=== PATIENT | female | born 1995 | race Caucasian/White ===

== ENCOUNTER 2016-11-09 01:21 | Emergency (ER) | payer OTHER ==
[~2016-11-09] VITALS: Ht 154.9 cm; Wt 52.3 kg
[2016-11-09 01:21] VITALS: TEMP 36.9; Ht 154.9 cm; Wt 52.3 kg
[2016-11-09] MEDS ORDERED: HALOPERIDOL LACTATE 5 MG/ML 1 ML VIAL ONE (01:24)
[2016-11-09] MEDS ORDERED: LORAZEPAM 2 MG/ML 1 ML VIAL ONE (01:24)
[2016-11-09 01:35] VITALS: O2SAT 98
[2016-11-09 01:54] LABS: HEMATOCRIT 36.2 % (37-47); MEAN CELL VOLUME 86.6 fL (80-100); MEAN CORPUSCULAR HGB CONC 32.3 g/dl (32-36); MEAN PLATELET VOLUME 9.5 fL (7.4-10.4); PLATELET COUNT 188 K/uL (130-400); RED BLOOD COUNT 4.18 M/uL (4.2-5.4)
[2016-11-09 02:13] LABS: BLOOD UREA NITROGEN 15 mg/dl (7-18); BUN/CREATININE RATIO 27.8 (10-20); CALCIUM 8.5 mg/dl (8.5-10.1); CARBON DIOXIDE 22 mmol/L (21-32); CHLORIDE 106 mmol/L (98-107); CREATININE 0.54 mg/dl (0.60-1.20); GLUCOSE 122 mg/dl (70-99); POTASSIUM 3.3 mmol/L (3.5-5.1); SODIUM 139 mmol/L (136-145)
--- NOTE | 2016-11-09 03:20 | EMERGENCY ROOM VISIT NOTE ---
History Report prepared by Alex: Matty Dennis Under the Supervision of: Dr. Mary Ann Ruiz D.O. First contact with patient: :27 Chief Complaint: ALCOHOL OVERDOSE Stated Complaint: ALCOHOL OVERDOSE Nursing Triage Summary: Pt arrived via [facility] from [facility] in handcuffs with [place] [employer]. Per PD, they were called to scene of local parking garage in [facility] due to a women repeatedly yelling "no". Upon arrival PD found the pt supine on the ground. Upon waking pt, she became combative with PD and was quickly restrained and handcuffed. Pt reportedly obtained several injuries during struggle with PD. EMS called to scene for pt evaluation. Upon arrival to hospital pt yelling "unsue me, unsue me. I did nothing wrong except being brown." Pt handcuffed with [place] PD escort. Pt moved from EMS litter onto hospital litter. Pt threatening and yelling. Pt yelling "get off me or I will kill them". Pt smells of alcohol. Denies drug use. History of Present Illness The patient is a 21 year old female who presents to the Emergency Room via Police for alcohol intoxication and combative behavior. Per the police and nursing staff, the patient was heard screaming from a parking garage by a passerby who phoned for 911. When police arrived to the parking deck, the patient was on the floor of the garage unresponsive. She began attacking the police and became very combative when she woke up. The police took her to the ground where she suffered an injury to the right forehead. Upon arrival to the emergency department the patient is screaming and being combative with hospital personnel. Source of History: police, nursing staff Onset: Shortly [employer] Position: other (EtOH intox) Quality: other (EtOH intox) Associated Symptoms: No LOC Review of Systems See HPI for pertinent positives & negatives. Past Medical & Surgical Medical Problems: (1) No significant medical problems Surgical Problems: (1) No significant past surgical history Family History No family history recorded secondary to EtOH intox and chemical sedation Social History Smoking Status: Never Smoker Alcohol Use: occasionally Marital Status: single Housing Status: lives alone Occupation Status: [employer] student Current/Historical Medications Unable to Obtain Active Prescriptions or Reported Meds Allergies Coded Allergies: No Known Allergies (Unverified , 09/10/15) Physical Exam Vital Signs Date Time Temp Pulse Resp B/P (MAP) Pulse Ox O2 Delivery O2 Flow Rate FiO2 11/09/16 06:01 106/71 11/09/16 05:56 85 14 96 11/09/16 05:36 80 11/09/16 05:31 91/60 11/09/16 05:26 84 17 95 11/09/16 05:21 83 16 95 11/09/16 05:01 98/60 11/09/16 04:51 79 15 96 11/09/16 04:46 79 15 96 11/09/16 04:31 83/50 11/09/16 04:16 77 15 96 11/09/16 04:11 77 15 96 11/09/16 04:01 96/51 11/09/16 03:41 95 22 96 11/09/16 03:31 71/33 11/09/16 03:11 81 16 95 11/09/16 03:06 82 16 95 11/09/16 03:01 86/42 11/09/16 02:40 76/43 11/09/16 02:06 91 17 95 11/09/16 02:01 99/52 11/09/16 01:35 98 Room Air 11/09/16 01:35 101 11/09/16 01:32 109/66 11/09/16 01:21 36.9 114 22 109/66 98 Room Air Physical Exam HEENT: Head - There is hematoma present over the right eye. Pupils are equal, round, and reactive to light. Extraocular eye muscles are intact and sclera are anicteric. Ears - bilaterally patent canals with no evidence of hemotympanum. Nose - moist nasal mucosa without evidence of trauma or discharge. Mouth - moist buccal mucosa with no trauma to the teeth or signs of malocclusion. Neck: The neck is supple and there is no pain to palpation over the posterior cervical spine and no obvious step-offs or deformities. There is no JVD or tracheal deviation. Chest: There are no signs of deformities, contusions or abrasions to the chest wall. There is no obvious crepitus or paradoxical chest rise. Heart: Regular, rate, and rhythm. There is a normal S1 and S2 with no murmurs, clicks, or gallops appreciated. Lungs: Clear to auscultation bilaterally with no wheezes, rales, or rhonchi. Abdomen: Soft, completely nontender, nondistended, with good bowel sounds. There is no sign of trauma such as contusions, abrasions or penetrations. There are no palpable pulsatile masses or hepatosplenomegaly. There is no guarding, rigidity, or rebound noted. Pelvis: Stable to rock and compression. Extremities: No obvious trauma, deformities, contusions, or edema. There are easily palpable peripheral pulses. Neuro: The patient is awake and alert and easily able to follow commands. Muscle strength is 5 out of 5 in all 4 extremities. Otherwise, neuro exam is unremarkable. Back: The entire thoracic, lumbar, and sacral spine were palpated. There are no obvious step-offs or deformities noted. There are no obvious signs of trauma such as contusions abrasions penetrations noted to the back. Medical Decision & Procedures ER Provider Diagnostic Interpretation: Radiology results as stated below per my review and the radiologist's interpretation: CT HEAD: Right periorbital soft tissue swelling with no underlying fracture. The right globe is intact. No acute infarct, hemorrhage, or hydrocephalus. The remaining soft tissues and the osseous structure are unremarkable. Radiologist: Dick Sanderson M.D. CT FACIAL: Right facial swelling with no underlying fracture. Paranasal sinuses and mastoid air cells are clear. Radiologist: Dick Sanderson M.D. CT C SPINE: Nonspecific straightening of the cervical spine. Otherwise no acute fracture or subluxation. The alignment and vertebral body heights are normal. Normal prevertebral and paranasal soft tissues. Radiologist: Dick Sanderson M.D. Laboratory Results 11/09/16 01:36 11/09/16 01:36 Test 11/09/16 01:36 Red Blood Count 4.18 M/uL (4.2-5.4) Mean Corpuscular Volume 86.6 fL (80-100) Mean Corpuscular Hemoglobin 28.0 pg (25-34) Mean Corpuscular Hemoglobin Concent 32.3 g/dl (32-36) RDW Standard Deviation 41.7 fL (36.4-46.3) RDW Coefficient of Variation 13.0 % (11.5-14.5) Mean Platelet Volume 9.5 fL (7.4-10.4) Anion Gap 11.0 mmol/L (3-11) Est Creatinine Clear Calc Drug Dose 123.2 ml/min Estimated GFR () > 150.0 Estimated GFR (Non- 133.9 BUN/Creatinine Ratio 27.8 (10-20) Calcium Level 8.5 mg/dl (8.5-10.1) Ethyl Alcohol mg/dL 279.0 mg/dl (0-3) Laboratory results per my review. Medications Administered Medications (Trade) Dose Ordered Sig/Carla Route Start Time Stop Time Status Last Admin Dose Admin Lorazepam (Ativan Inj) 2 mg STK-MED ONCE .ROUTE 11/09/16 01:24 11/09/16 01:25 DC 11/09/16 01:48 1 MG Haloperidol Lactate (Haldol Inj) 5 mg STK-MED ONCE .ROUTE 11/09/16 01:24 11/09/16 01:25 DC 11/09/16 01:48 5 MG Procedure Medications Ordered: Haldol, Ativan ED Course 0115: Past medical records reviewed. The patient was evaluated in room A12. A complete history and physical exam was performed while the patient was screaming at me and the staff.. 0124: Ordered Ativan 1 mg IM, Haldol 5 mg IM 0128: The patient received Haldol and Ativan at this time as chemical restraint. The patient was placed on the monitoring analyst and pulse oximeter. She was placed in the prone position to avoid aspiration. 0140: The patient continued to scream and throw herself about the bed. The patient had locked limb restraints applied at this time. 0151: I checked on the patient at this time. She is awake but under more control. I attempted to do a more thorough eye exam but the patient would not allow me. 0316: I reevaluated the patient. She is sound asleep and hemodynamically stable. 0612: The patient is awake at this time. She has no recollection of her night last night, she if calling for friends to pick her up. The patient will be discharged. Medical Decision The patient is a 21 year old female who presents to the Emergency Department for alcohol intoxation and combative behavior. Differential diagnosis includes; Alcohol overdose, drug abuse, orbital hematoma Laboratory results were reviewed and show; EtOH of 279, glucose of 122, and normal renal function. The patient presented to the emergency department with police in handcuffs along with EMS. The patient was screaming expletives at the police, EMS, security and staff. The patient had some trauma noted to the right side of her face. She went for a CT scan of the brain, facial bones, and cervical spine as described above. The patient remained required both chemical and physical restraint to prevent her from injuring herself. When the patient was initially unrestrained, she nearly rolled out of the bed. The patient remained hemodynamically stable while here in the emergency department. Upon awakening and becoming more sober this morning, the patient had no recollection of the events of the evening. She denied any pain at the time of discharge. I did review the results for CT scans and laboratory studies. I've encouraged her to avoid such excessive alcohol use in the future. She should rest with her head elevated to minimize edema and hematoma. She can apply ice to the right eye. Once the patient was fully awake, I attempted to do an exam of the right eye but was unable to pry the eye open. I have asked her to follow-up with ophthalmology if she has any symptoms related to the right eye. Impression Primary Impression: Traumatic hematoma of right orbit Additional Impression: Alcohol overdose Critical Care I have personally spent greater than 30 minutes of critical care time in the direct management of this patient. This includes bedside care, interpretation of diagnostic studies, and testing, discussion with consultants, patient, and family members, and other required patient management activities. This 30 minutes is in excess of all separately billable procedures. Scribe Attestation The scribe's documentation has been prepared under my direction and personally reviewed by me in its entirety. I confirm that the note above accurately reflects all work, treatment, procedures, and medical decision making performed by me. Departure Information Dispostion Home / Self-Care Prescriptions Unable to Obtain Active Prescriptions or Reported Meds Referrals No Doctor, Assigned (PCP) Forms HOME CARE DOCUMENTATION FORM, IMPORTANT VISIT INFORMATION Patient Instructions My [facility] Additional Instructions Rest with the head of the bed elevated to minimize swelling. Apply ice to the face. Avoid such excessive alcohol use in the future. Take plenty of clear liquids today. Use tylenol for head or face pain. Problem Qualifiers
--- NOTE | 2016-11-09 06:42 | DIAGNOSTIC IMAGING REPORT ---
CERVICAL SPINE W/O CT DOSE: HISTORY: Pain eval for trauma TECHNIQUE: Multiaxial CT images of the cervical spine were performed and reformatted in the sagittal and coronal plane without the use of contrast. COMPARISON: None. FINDINGS: No fractures. No subluxation. Prevertebral soft tissues and the C1-C2 interval are intact. No pneumothorax. IMPRESSION: No fractures within the cervical spine. The above report was generated using voice recognition software. It may contain grammatical, syntax or spelling errors. Electronically signed by: Chandan Wilson M.D. 11/09/2016 6:41 AM Dictated Date/Time: 11/09/2016 6:39 AM
--- NOTE | 2016-11-09 06:44 | DIAGNOSTIC IMAGING REPORT ---
HEAD WITHOUT CONTRAST (CT) CT DOSE: 924.78 mGy.cm HISTORY: Trauma eval for trauma TECHNIQUE: Multiaxial CT images of the head were performed without the use of intravenous contrast. Comparison: None. Findings: The paranasal sinuses and mastoid air cells are clear. The calvarium and skull base are intact. The ventricles and sulci are within normal limits. There is no mass, hematoma, midline shift, or acute infarct. Impression: No acute intracranial abnormality. The above report was generated using voice recognition software. It may contain grammatical, syntax or spelling errors. Electronically signed by: Chandan Wilson M.D. 11/09/2016 6:43 AM Dictated Date/Time: 11/09/2016 6:43 AM
--- NOTE | 2016-11-09 06:44 | DIAGNOSTIC IMAGING REPORT ---
FACIAL BONES-MXILLOFAC WITHOUT CT DOSE: HISTORY: Trauma eval for trauma TECHNIQUE: Multiaxial CT images of the maxillofacial region were performed and reformatted in the coronal plane without the use of contrast. COMPARISON: None. FINDINGS: The visualized cervical spine, skull base, pterygoid plates, nasal bones, lamina papyracea, orbital floors, mandible, and zygomatic arches are intact. No fractures. The orbits are unremarkable. Right preorbital soft tissue edema IMPRESSION: Soft tissue edema. No acute bony abnormality. The above report was generated using voice recognition software. It may contain grammatical, syntax or spelling errors. Electronically signed by: Chandan Wilson M.D. 11/09/2016 6:42 AM Dictated Date/Time: 11/09/2016 6:41 AM
[2016-11-09 09:37] VITALS: BP 109/62; PULSE 86; O2SAT 97
== END 2016-11-09 09:44 | disposition home or self-care (01) ==
LOC: EDBD 01:21 → C.EDA 01:22
DX: S00.11XA Contusion of right eyelid and periocular area, initial encounter (principal); F10.129 Alcohol abuse with intoxication, unspecified; Y90.8 Blood alcohol level of 240 mg/100 ml or more; Y35.813A Legal intervention involving manhandling, suspect injured, initial encounter